=== PATIENT | female | born 1990 | race Caucasian/White ===

== ENCOUNTER 2019-01-13 11:23 | Emergency (ER) | payer OTHER ==
[~2019-01-13] VITALS: Ht 170.2 cm; Wt 72.6 kg
[2019-01-13 11:26] VITALS: Ht 170.2 cm; Wt 72.6 kg
[2019-01-13 12:40] LABS: CALCIUM 9.4 mg/dL (8.5-10.1); CARBON DIOXIDE 23.4 mmol/L (21-32); CHLORIDE SERUM 100 mmol/L (98-107); CREATININE SERUM 0.9 mg/dL (0.6-1.0); GFR1 > 60 mL/min; GLUCOSE SERUM 89 mg/dL (74-106); LIPASE 161 IU/L (73-393); POTASSIUM SERUM 3.8 mmol/L (3.5-5.1); SODIUM SERUM 135 mmol/L (136-145)
[2019-01-13 13:12] LABS: BASOPHIL % 0.1 % (0-2); PLATELET COUNT 332 x10^3mcL (130-400); RED CELL DISTRIBUTION WIDTH 12.3 % (11.5-14.5)
[2019-01-13 14:26] LABS: UA SPECIFIC GRAVITY 1.015 (1.005-1.035)
[2019-01-13 14:27] LABS: microscopic required? YES; urine erythrocyte 2+ (NEGATIVE)
[2019-01-13 15:27] VITALS: BP 121/96
== END 2019-01-13 15:53 | disposition short-term general hospital (02) ==
LOC: ED 11:23
PROVIDERS: Emergency Medicine
DX: S32.9XXA Fracture of unspecified parts of lumbosacral spine and pelvis, initial encounter for closed fracture (principal); S32.039A Unspecified fracture of third lumbar vertebra, initial encounter for closed fracture; S32.049A Unspecified fracture of fourth lumbar vertebra, initial encounter for closed fracture; V80.010A Animal-rider injured by fall from or being thrown from horse in noncollision accident, initial encounter; Y93.52 Activity, horseback riding; Y92.89 Other specified places as the place of occurrence of the external cause; Y99.8 Other external cause status
CPT/HCPCS: J3010; J7030; Q9967